=== PATIENT | female | born 1975 ===

== ENCOUNTER 2018-03-04 08:48 | Day surgery (SDC) | payer BC ==
[~2018-03-04] VITALS: Ht 162.6 cm; Wt 93.0 kg
[2018-03-04] VITALS (7 sets, daily range): BP systolic 110–123; BP diastolic 70–82
[~2018-03-04 08:48] MED LIST: Midazolam 2mg/2ml Inj ONE; Propofol 200mg/20ml IV ONE; ZANTAC150 MG ORAL
[2018-03-04] MEDS ORDERED: MULTIVITAMINS1 EAC2 ORAL (09:40)
--- NOTE | 2018-03-04 09:42 | Pre-Procedure Note/Attestation ---
Pre-Procedure Note/Attestation Complete Prior to Procedure Planned Procedure: not applicable Procedure Narrative: egd Indications for Procedure Pre-Operative Diagnosis: gerd Attestation I attest that I discussed the nature of the procedure; its benefits; risks and complications; and alternatives (and the risks and benefits of such alternatives ), prior to the procedure, with the patient (or the patient's legal escrow representative). I attest that, if there was a reasonable possibility of needing a blood transfusion, the patient (or the patient's legal escrow representative) was given the [facility] standardized written summary, pursuant to the [employer] Blood Safety Act ([place] Health and Safety Code # 1645, as amended). I attest that I re-evaluated the patient just prior to the surgery and that there has been no change in the patient's H&P, except as documented below: Ramy Tamayo MD Mar 04, 2018 09:42
--- NOTE | 2018-03-04 09:43 | Short Stay Surgery H&P ---
History of Present Illness History of Present Illness Chief Complaint see recent office note HPI Wanda Hunt is a 42 year old female who was admitted on for GERD Patient History Allergies: Coded Allergies: SULFAMETHOXAZOLE (Verified Allergy, Unknown, 12/09/17) TRIMETHOPRIM (Verified Allergy, Unknown, 12/09/17) Medication History Scheduled Multivitamins* (Multivitamins*), 1 TAB ORAL DAILY, (Reported) Ranitidine Hcl* (Zantac*), 150 MG ORAL DAILY, (Reported) Physical Exam Vital Signs Last Vital Signs Date Time Temp Pulse Resp B/P (MAP) Pulse Ox O2 Delivery O2 Flow Rate FiO2 03/04/18 09:36 97.9 71 20 110/70 99 Room Air Labs Laboratory Tests Test 03/04/18 09:09 Urine HCG, Qualitative Negative (NEGATIVE) Plan Attestation Are the patient's medical conditions optimized for surgery? Ramy Tamayo MD Mar 04, 2018 09:43
--- NOTE | 2018-03-04 09:47 | Short Stay Surgery H&P ---
History of Present Illness History of Present Illness Chief Complaint gerd HPI Wanda Hunt is a 42 year old female who was admitted on for GERD Patient History Allergies: Coded Allergies: SULFAMETHOXAZOLE (Verified Allergy, Unknown, 12/09/17) TRIMETHOPRIM (Verified Allergy, Unknown, 12/09/17) PAST MEDICAL HISTORY: (1) GERD (gastroesophageal reflux disease) (2) Anxiety Medication History Scheduled Multivitamins* (Multivitamins*), 1 TAB ORAL DAILY, (Reported) Ranitidine Hcl* (Zantac*), 150 MG ORAL DAILY, (Reported) Review of Systems Cardiovascular: Reports: no symptoms Respiratory: Reports: no symptoms Skeletal: Reports: no symptoms Gastrointestinal: Reports: gastro esophageal reflux disease Genitourinary: Reports: no symptoms Neurologic: Reports: no symptoms Endocrine: Reports: no symptoms Hematologic: Reports: no symptoms Physical Exam Vital Signs Last Vital Signs Date Time Temp Pulse Resp B/P (MAP) Pulse Ox O2 Delivery O2 Flow Rate FiO2 03/04/18 09:36 97.9 71 20 110/70 99 Room Air Labs Laboratory Tests Test 03/04/18 09:09 Urine HCG, Qualitative Negative (NEGATIVE) Skin: normal HENT: normal Heart: normal Lungs: normal Abdomen: normal Extremities: normal Plan Attestation Are the patient's medical conditions optimized for surgery? Attestation Response: yes Ramy Tamayo MD Mar 04, 2018 09:47
--- NOTE | 2018-03-04 10:07 | Endoscopy Procedure Note ---
Endoscopy Procedure Note General Indication for Procedure: gerd Procedures Performed: EGD Operative Findings/Diagnosis: gastritis Specimen: yes Pt Tolerated Procedure Well: Yes Estimated Blood Loss: none Anesthesia Anesthesiologist: lorie Anesthesia: MAC Inserted Devices Implant(s) used?: No GI Core Measures 50 yrs or older w/o bx or poly: Not Applicable 10yrs. F/U not recommended: Not Applicable Ramy Tamayo MD Mar 04, 2018 10:07
--- NOTE | 2018-03-04 10:22 | Anethesia Preoperative Eval ---
Anesthesia Pre-op PMH/ROS General Date of Evaluation: Mar 04, 2018 Time of Evaluation: 09:45 Anesthesiologist: Bonny Amaro CRNA ASA Score: ASA 2 Mallampati Score Class I : Soft palate, uvula, fauces, pillars visible Class II: Soft palate, uvula, fauces visible Class III: Soft palate, base of uvula visible Class IV: Only hard plate visible Mallampati Classification: Class II Surgeon: Belkis Diagnosis: GERD Surgical Procedure: Esophagogastroduodenoscopy diagnostic Anesthesia History: none Family History: no anesthesia problems Allergies: Coded Allergies: SULFAMETHOXAZOLE (Verified Allergy, Unknown, 12/09/17) TRIMETHOPRIM (Verified Allergy, Unknown, 12/09/17) Medications: see eMAR Patient NPO?: Yes NPO Date: Mar 04, 2018 NPO Time: 00:00 Past Medical History Cardiovascular: Denies: HTN, CAD, MS, valve dz, arrhythmia, other Pulmonary: Denies: asthma, COPD, EMANI, other Gastrointestinal/Genitourinary: Reports: GERD; Denies: CRI, ESRD, other Neurologic/Psychiatric: Denies: dementia, CVA, depression/anxiety, TIA, other HEENT: Denies: cataract (L), cataract (R), glaucoma, [place] (L), [place] (R), other Hematology/Immune: Reports: other - Sickle cell trait runs in family but denies personal history Musculoskeletal/Integumentary: Denies: OA, RA, DJD, DDD, edema, other Other: obesity PMH Narrative: as above PSxH Narrative: EGD Anesthesia Pre-op Phys. Exam Physician Exam Last Vital Signs Date Time Temp Pulse Resp B/P (MAP) Pulse Ox O2 Delivery O2 Flow Rate FiO2 03/04/18 09:36 97.9 71 20 110/70 99 Room Air Constitutional: NAD, other - obese Neurologic: CN 2-12 intact Cardiovascular: RRR Respiratory: CTA Gastrointestinal: S/NT/ND Airway Exam Mallampati Score: Class I MO: full Neck: FROM TMD: > 3FB ROM: full Teeth: intact, other - braces Dentures: no upper, no lower Anesthesia Pre-op A/P Labs Urine Test Test 03/04/18 09:09 Urine HCG, Qualitative Negative (NEGATIVE) Risk Assessment & Plan Assessment: ASA 2, ok to proceed Plan: MAC Status Change Before Surgery: No Pre-Antibiotics Given Within 1 Hr of Incision: No Bonny Amaro CRNA Mar 04, 2018 10:22
--- NOTE | 2018-03-04 10:24 | Immediate Post-Op Evaluation ---
Immediate Post-Op Evalulation Immediate Post-Op Evalulation Procedure: Diagnostic EGD Date of Evaluation: Mar 04, 2018 Time of Evaluation: 10:09 IV Fluids: LR 100 ml Blood Pressure Systolic: 116 Blood Pressure Diastolic: 80 Pulse Rate: 71 Respiratory Rate: 16 O2 Sat by Pulse Oximetry: 100 Temperature (Fahrenheit): 97.6 Pain Score (1-10): 0 Nausea: No Vomiting: No Complications none Patient Status: awake, reacts, patent Hydration Status: adequate Given Within 1 Hr of Incision: Bonny Arndt CRNA Mar 04, 2018 10:24
--- NOTE | 2018-03-04 10:39 | 48 Hour Post Anesthesia Eval ---
Post Anesthesia Evaluation Procedure: Diagnostic EGD Date of Evaluation: Mar 04, 2018 Time of Evaluation: 10:38 Blood Pressure Systolic: 117 0: 80 Pulse Rate: 67 Respiratory Rate: 15 Temperature (Fahrenheit): 98.4 O2 Sat by Pulse Oximetry: 98 Airway: patent Nausea: No Vomiting: No Pain Intensity: 0 Hydration Status: adequate Cardiopulmonary Status: stable Mental Status/LOC: patient returned to baseline Follow-up Care/Observations: per GI Post-Anesthesia Complications: none Follow-up care needed: ready to discharge Bonny Amaro CRNA Mar 04, 2018 10:39
--- NOTE | 2018-03-04 11:15 | Procedure Note ---
DATE OF PROCEDURE: 03/04/2018 SURGEON: Ramy Tamayo M.D. ANESTHESIOLOGIST: Kate OALKEY. PROCEDURE: Upper endoscopy with biopsy. ANESTHESIA: Per Kate OAKLEY. INSTRUMENT: Olympus adult flexible upper endoscope. INDICATION: Dysphagia, GERD. The procedure, risks, benefits, and possible consequences, including hemorrhage, aspiration, perforation and infection, and alternative treatments, were explained to the patient/legal guardian by Dr. Ramy Tamayo and the patient/legal guardian understood and accepted these risks. DESCRIPTION OF PROCEDURE: After informed consent was obtained and the patient was adequately sedated, Olympus upper endoscope was advanced from the mouth into the second portion of duodenum and retroflexion was performed in the stomach. The patient had mild diffuse gastritis. Random biopsy from antrum and body was obtained to rule out H. pylori infection. Otherwise, the rest of upper endoscopic examination grossly looked within normal limits. The patient tolerated the procedure very well without any complication. SUMMARY OF FINDINGS: Gastritis, otherwise normal physical examination. RECOMMENDATIONS: Follow up biopsy results and treat accordingly. Ramy Tamayo M.D. DR: Karina JOB#: [id number] CC:
== END 2018-03-04 11:15 | disposition home or self-care (01) ==
LOC: GAS 08:48
DX: K29.50 Unspecified chronic gastritis without bleeding (principal); F41.9 Anxiety disorder, unspecified; E66.9 Obesity, unspecified; Z88.2 Allergy status to sulfonamides; Z88.8 Allergy status to other drugs, medicaments and biological substances
CPT/HCPCS: 81025; 94003; 94150; J2250